=== PATIENT | female | born 1990 | race Caucasian/White ===

== ENCOUNTER 2018-03-03 01:44 | Emergency (ER) | END 2018-03-03 06:14 | disposition home or self-care (01) ==

== ENCOUNTER 2018-03-04 11:09 | Emergency (ER) | END 2018-03-04 14:09 | disposition home or self-care (01) ==

== ENCOUNTER 2018-03-15 13:59 | Emergency (ER) | END 2018-03-15 17:20 | disposition home or self-care (01) ==

== ENCOUNTER 2018-03-21 14:54 | Emergency (ER) | END 2018-03-21 17:49 | disposition home or self-care (01) ==

== ENCOUNTER 2018-10-15 11:18 | Inpatient (IN) | payer OTHER ==
[~2018-10-15] VITALS: Ht 149.9 cm; Wt 58.7 kg
[~2018-10-15 11:18] MED LIST: CEPH-443 PO; ELEC100080 PO; EPINEPHrine 1 MG INJ ONE; METO10TA92 PO; OMEP20CA16 PO; ONDA4TAB14 PO; ONDA8TAB14 PO; RANI150T35 PO
[2018-10-15 12:43] VITALS: Ht 149.9 cm; Wt 58.7 kg
[2018-10-15] MEDS ORDERED: PREN-93 PO (12:43)
[2018-10-15] MEDS ORDERED: LEVO125T7 PO (12:43)
[2018-10-15 12:44] VITALS: BP 98/60; PULSE 72; RESP 18
--- NOTE | 2018-10-15 12:54 | TRIAGE ---
OB Triage Datetime Report Generated by CPN: 10/15/2018 12:54 Datetime: 10/15/2018 12:40 Assessment Type: Triage Maternal Assessment Level of Consciousness: Fully Conscious DTR's/Clonus: DTRs 2+; No Clonus Headache: Denies Blurred Vision: No Respiratory Effort: Unlabored; Regular Rhythm; Equal Expansion Breath Sounds, Left: Clear and Equal Breath Sounds, Right: Clear and Equal Nausea/Vomiting: Denies RUQ Epigastric Pain: Denies Lower Extremities Edema: None Degree: None Upper Extremities Edema: None Degree: None Facial Edema: None Fall Risk Assessment History of Falling: (0) No Secondary Diagnosis: (0) No Ambulatory Aid: (0) Bedrest/Nurse Assist IV Therapy: (0) No Gait: (0) Normal/Bedrest/Immobile Mental Status: (0) Oriented to Own Ability Fall Score: 0 Fall Risk Score Definition: No Risk: No action required Datetime: 10/15/2018 12:37 Time of Arrival: 10/15/2018 11:15 EGA: 38.4 Arrived By: Ambulatory Arrived From: Home Chief Complaint: PT. WAS SENT FOR NST/BPP/EFW FOR THROIDECTOMY Movement: Present Contractions: Denies/Absent Rupture of Membranes: Denies Vaginal Bleeding: None Vaginal Discharge: Denies Recent Sexual Intercouse: Denies Abdominal Trauma: Not Applicable Patient Complaints: None Time Provider Notified: 10/15/2018 12:45 Provider Notified: HADADIAN Initial Plan: NST/BPP/EFW Datetime: 10/15/2018 12:36 Labor Evaluation Monitor Mode: External Heart Rate Monitor Mode: External US
[2018-10-15] MEDS ORDERED: OXYTOCIN 30 UNITS/LR 500 ML IV SCH (13:30)
[2018-10-15] MEDS ORDERED: MISOPROSTOL 200 MCG TAB PR PRN (13:30)
[2018-10-15] MEDS ORDERED: OXYTOCIN 30 UNITS/LR 500 ML IV PRN (13:30)
[2018-10-15] MEDS ORDERED: CEFAZOLIN 2 GM/50 ML (PMX) 50 ML IVPB SCH (13:30)
[2018-10-15] MEDS ORDERED: CARBOPROST 250 MCG INJ IM PRN (13:30)
[2018-10-15] MEDS ORDERED: METHYLERGONOVINE 0.2 MG INJ IM PRN (13:30)
--- NOTE | 2018-10-15 14:43 | HP ---
Date/Time of Note Date/Time of Note DATE: 10/15/18 TIME: 14:33 OB - History Hx of Present Free Text/Dictation 28-year-old 1 with single intrauterine at 38 weeks and 4 days with DARIO of 10/25/2018 [facility] [place] today. She referred for NST and biophysical profile for hypothyroidism and size less than date. She states good movement. She denies nausea, vomiting, shortness of breath, chest pain, headache, visual changes, vaginal bleeding or LOF. Risk factors: - History of thyroidectomy in 2013 for goiter, currently is hypothyroidism and is on levothyroxine - Size less than date, EFW of 5% - Breach presentation Estimated Due Date: Oct 25, 2018 : 1 Care: Good Care Ultrasounds: Normal mid trimester US Obstetrical Complications: Other (Size less than date) Medical Complications: Other (Hypothyroidism s/p thyroidectomy) Past Family/Social History * Past Medical, Surgical, Family and Obstetric Histories reviewed from chart. Blood Type: O+ Rubella: immune RPR/VDRL: Negative GBS Status: Negative HBsAG: Negative OB Admission Exam Vital Signs Vital Signs Vital Signs Date Temp Pulse Resp B/P (MAP) Pulse Ox O2 O2 Flow FiO2 Time Delivery Rate 10/15/18 97.6 72 18 98/60 (73) Room Air 12:44 Physical Exam HEENT: WNL Heart: Rhythm Normal Lungs: Clear Abdomen: WNL Extremities: Normal Station: -3 Membranes: Intact Heart Rate: 140's Accelerations: Accelerations Present Decelerations: No Decelerations Varibility: Moderate Contractions on Admission: >10 Minutes Apart Intensity: Mild OB Assessment/Plan Other plan: 28 years old 1 with single intrauterine at 38 weeks and 4 days with breech presentation, EFW of 5 percentile, hypothyroidism s/p thyroidectomy and oligohydramnios - FHR: No sign of metabolic acidosis- Category I - Continuous EFM, toco - CBC, blood type and screen - Analgesia options with R/B/A discussed in detail with patient - Please see the orders - O+/Rubella: Immune - GBS: negative - Labs, ultrasound and delivery discussed in detail with patient. She ate around 12, will keep her n.p.o. The risk of delivery including but not limited to bleeding, infection, injury to other organs (bowel, bladder, ureter, vessels, nerves), injury to fetus, blood transfusion, blood transfusion related infection, risk of anesthesia, adhesion, needs for future , removal of uterus or any other indicated surgery was discussed with the patient and her family. She expressed understanding. All of her questions were answered. She signed the informed consent. PHYSICIAN'S VERIFICATION OF INFORMED CONSENT The patient was counseled regarding the procedure, its indications, risks, potential complications and alternatives and any questions were answered. Consent was obtained. PLANNED PROCEDURE/TREATMENT: delivery with possible using vacuum/forceps and any other indicated surgery PHYSICIAN'S VERIFICATION OF INFORMED CONSENT FOR BLOOD TRANSFUSION: There is a reasonable possibility that blood transfusion will be necessary as a result of the patient's procedure. I have discussed the following with the patient/patient's legal inventory representative: An explanation of the benefits and risks of the transfusion of blood or blood products and the possible a lternatives. All questions have been answered to the patient's satisfaction. INFORMED CONSENT:The patient has been informed of: The nature of the proposed care, treatment, services, medications, interventions or procedures. Potential benefits, risks or side effects, including potential problems related to recuperation. The likelihood of achieving care treatment and service goals. Reasonable alternatives to the proposed care, treatment and service. The relevant risks, benefits and side effects related to alternatives, including the possible results of not receiving care, treatment and services. When indicated, any limitations on the confidentiality of information learned from or about the patient. If appropriate, the risks, benefits and alternatives of the drugs to be used for sedation/analgesia including moderate sedation. If appropriate, patient has been provided information on the risks, benefits and alternatives to the transfusion of blood and/or blood products. If appropriate, patient has been provided information regarding the [place] Blood Act. BLAIR DOWNS Oct 15, 2018 14:43
[2018-10-15] MEDS: LACTATED RINGER'S 1,000 ML IV SCH ×3 (15:16→23:05)
--- NOTE | 2018-10-15 21:40 | PREAC ---
Date/Time of Note Date/Time of Note DATE: 10/15/18 TIME: 21:40 Anesthesia Eval and Record Evaluation Time Pre-Procedure Interview DATE: 10/15/18 TIME: 21:40 Age 28 Sex female NPO: 8 hrs Preoperative diagnosis term labor, breech position Planned procedure primary Csection Past Medical History Past Medical History: None Surgery & Anesthesia Issues No known issue Meds Anticoagulation: No Beta Alethea within 24 hr: No Reason Beta Alethea not given: Pt. not on B-Alethea Reported Medications Vit No.124/Iron/FA ( Vitamin Tablet) 1 Each Tablet, 1 EACH PO DAILY, TAB 10/15/18 Levothyroxine Sodium* (Levothyroxine Sodium*) 125 Mcg Tablet, 125 MCG PO BEFORE BREAKFAST, #30 TAB 10/15/18 Discontinued Scripts Ranitidine Hcl* (Zantac*) 150 Mg Tablet, 150 MG PO BID PRN for EPIGASTRIC PAIN, #30 TAB Prov:RITCHIE MCKINNON. HAT MENDER 03/21/18 Omeprazole* (Omeprazole*) 20 Mg Capsule.dr, 20 MG PO QAM, #14 Prov:RITCHIE MCKINNON. HAT MENDER 03/21/18 Cephalexin* (Keflex*) 500 Mg Capsule, 500 MG PO QID for 7 Days, CAP Prov:HEAVEN MOSLEY PA-C 03/15/18 Ondansetron (Ondansetron Odt) 8 Mg Tab.rapdis, 8 MG PO Q6H PRN for NAUSEA AND/OR VOMITING, #10 TAB Prov:RITCHIE MCKINNON. SILVA 03/10/18 Electrolyte,Oral (Pedialyte) 1,000 Ml Solution, 100 ML PO Q6 PRN for vomiting, #1000 ML Prov:GUZMAN HU PA-C 03/04/18 Ondansetron (Ondansetron Odt) 4 Mg Tab.rapdis, 4 MG PO Q6H PRN for NAUSEA AND/OR VOMITING, #10 TAB Prov:GUZMAN HU PA-C 03/04/18 Cephalexin* (Keflex*) 500 Mg Capsule, 500 MG PO TID for 7 Days, CAP Prov:DAMIAN GARCIA PA-C 03/03/18 Metoclopramide* (Reglan*) 10 Mg Tablet, 10 MG PO Q6 PRN for NAUSEA AND/OR VOMITING, #10 TAB Prov:DAMIAN GARCIA PA-C 03/03/18 Current Medications Levothyroxine Sodium (Synthroid) 125 mcg BEFORE BREAKFAST PO ; Start 10/16/18 at 07:00 Lactated Ringer's 1,000 ml @ 125 mls/hr Q8H IV Last administered on 10/15/18at 19:33; Admin Dose 125 MLS/HR; Start 10/15/18 at 13:13 Cefazolin Sodium/ Dextrose 50 ml @ 100 mls/hr ONCE IVPB ; Start 10/15/18 at 13:30 Oxytocin/Lactated Ringer's 500 ml @ 125 mls/hr POST IV ; Start 10/15/18 at 13:30 Oxytocin/Lactated Ringer's 500 ml @ 0 mls/hr ONCE PRN IV VAGINAL BLEEDING; S tart 10/15/18 at 13:30 Methylergonovine Maleate (Methergine) 0.2 mg ONCE PRN IM VAGINAL BLEEDING; S tart 10/15/18 at 13:30 Carboprost Tromethamine (Hemabate) 250 mcg ONCE PRN IM VAGINAL BLEEDING; Start 10/15/18 at 13:30 Misoprostol (Cytotec) 1,000 mcg ONCE PRN GA VAGINAL BLEEDING; Start 10/15/18 at 13:30 Famotidine (Pepcid Iv) 20 mg ONCE ONCE IV ; Start 10/15/18 at 22:30; Stop 10/15/18 at 22:31 Ondansetron HCl (Zofran Inj) 4 mg ONCE ONCE IV ; Start 10/15/18 at 22:30; Stop 10/15/18 at 22:31 Metoclopramide HCl (Reglan) 10 mg ONCE ONCE IV ; Start 10/15/18 at 22:30; Stop 10/15/18 at 22:31 Meds reviewed: Yes Allergies Coded Allergies: No Known Allergy (Unverified , 03/21/18) Allergies Reviewed: Yes Labs/Studies Labs Reviewed: Reviewed by anesthesiologist Result Diagram: 10/15/18 1424 Laboratory Tests 10/15/18 14:24 Blood Bank Test 10/15/18 14:24 Antibody Screen NEGATIVE Blood Type O POSITIVE Rh Immune Globulin Candidate NO test: Positive Pre-procedure Exam Last vitals Vital Signs Date Temp Pulse Resp B/P (MAP) Pulse Ox O2 O2 Flow FiO2 Time Delivery Rate 10/15/18 97.6 72 18 98/60 (73) Room Air 12:44 Airway: Adequate mouth opening, Adequate thyromental dist Mallampati: Mallampati III Teeth: Normal Lung: Normal Heart: Normal ASA Physical Status ASA physical status: 2 Emergency: E Planned Anesthetic Neuraxial: Spinal Planned Pain Management Sub-arachniod narcotics, Parenteral pain med, Other neuraxial med Pre-operative Attestations Prior to commencing anesthesia and surgery, the patient was re-evaluated, there was verification of: *The patient's identity *The results of appropriate recent lab work and preoperative vital signs *The above evaluation not changing prior to induction *Anesthetic plan, risk benefits, alternative and complications discussed with patient/family; questions answered; patient/family understands, accepts and wishes to proceed. JOHANNA PARK MD Oct 15, 2018 21:40
[2018-10-15] MEDS ORDERED: morphine SULFATE/PF (10 MG/10 ML) INJ ONE (21:57)
[2018-10-15] MEDS ORDERED: OXYTOCIN 10 UNIT INJ ONE (21:58)
[2018-10-15] MEDS ORDERED: ZOLPIDEM 5 MG TAB PO PRN (22:00)
[2018-10-15] MEDS ORDERED: HYDROmorphONE 1 MG/5 ML IV SYRINGE IV PRN ×3 (22:00)
[2018-10-15] MEDS ORDERED: NALOXONE (0.4 MG/ML) INJ IV PRN ×2 (22:00)
[2018-10-15] MEDS ORDERED: ONDANSETRON 4 MG INJ IV PRN ×2 (22:00)
[2018-10-15] MEDS ORDERED: KETOROLAC 30 MG INJ IV PRN ×2 (22:00)
[2018-10-15] MEDS ORDERED: FENTAnyl 50 MCG/ML VIAL IV PRN ×2 (22:00)
[2018-10-15] MEDS ORDERED: DIPHENHYDRAMINE 50 MG INJ IV PRN ×2 (22:00)
[2018-10-15] MEDS ORDERED: HYDROmorphONE 0.5 MG/0.5 ML SYG IV PRN ×2 (22:00)
[2018-10-15] MEDS ORDERED: FAMOTIDINE 20 MG INJ IV ONE (22:30)
[2018-10-15] MEDS ORDERED: METOCLOPRAMIDE 10 MG INJ IV ONE (22:30)
[2018-10-15] MEDS ORDERED: ONDANSETRON 4 MG INJ IV ONE (22:30)
[2018-10-16] VITALS (7 sets, daily range): BP systolic 102–118; BP diastolic 58–70; PULSE 58–93; RESP 18–19
[2018-10-16] MEDS ORDERED: OXYTOCIN 30 UNITS/LR 500 ML IV SCH (01:27)
[2018-10-16] MEDS: DEXTROSE 5%-LR 1,000 ML IV SCH ×3 (01:27→20:31)
--- NOTE | 2018-10-16 01:27 | OPR ---
Operative Report Planned Procedure Procedure date Oct 16, 2018 Procedure(s) Primary low transverse delivery Performed by see signature line Web Development Intern: KAMALA JOY MD Anesthesiologist: JOHANNA PARK MD Pre-procedure diagnosis 28 years old 1 with single intrauterine at 38 weeks and 4 days with breech presentation, EFW of 5 percentile, hypothyroidism s/p thyroidectomy and oligohydramnios [id number] Anesthesia Type: [id number] spinal Post-Procedure Post-procedure diagnosis 28 years old 1 with single intrauterine at 38 weeks and 4 days with breech presentation, EFW of 5 percentile, hypothyroidism s/p thyroidectomy and oligohydramnios Findings 1. Normal uterus, fallopian tubes and ovaries 2. Viable female in renee breech presentation. 8 at one minute and 9 in 5 minutes. Weight: 6 pounds 13 ounces. Time of delivery: 00:56 3. Placenta with three vessel cord 4. Amniotic fluid - Clear Estimated Blood Loss: 500 - 600 mls Specimen(s) none Grafts/Implant(s) none Complication(s) none Pt Condition post procedure: stable Disposition: PACU Procedure Description INDICATION AND HISTORY: A 28 years old 1 with single intrauterine at 38 weeks and 4 days with breech presentation, EFW of 5 percentile, hypothyroidism s/p thyroidectomy and oligohydramnios. The risk of delivery including but not limited to bleeding, infection, injury to other organs (bowel, bladder, ureter, vessels, nerves), injury to fetus, blood transfusion, blood transfusion related infection, risk of anesthesia, adhesion, needs for future , removal of uterus or any other indicated surgery was discussed with the patient and her family. She expressed understanding. All of her questions were answered. She signed the informed consent. DESCRIPTION OF OPERATION: The patient was taken to the operating room, where she was identified and the procedure was verified. The patient received two gram of Ancef 30 minutes prior to surgery. Spinal anesthesia was placed. The patient placed in the dorsal supine position with a left tilt. The heart rate was 143 bpm. The patient was then prepped and draped in the normal sterile fashion. A Pfannenstiel skin incision was made and carried down to the fascia with knife. The fascia was incised in the midline and the fascial incision was carried laterally with knif. The superior portion of the fascial incision was then grasped with Kenroy clamps and tented up and dissected off the underlying rectus muscle with sharp dissection. The lower portion of the fascial incision was then made in a similar fashion. The rectus muscle was and the peritoneum was entered. The peritoneal incision was then stretched and an Hilario retractor was inserted. Then, an incision was made in the lower uterine segment in a transverse fashion with a knife and extended bluntly. The was delivered atraumatically in renee breech presentation with the above findings. The umbilical cord was clamped and cut. The neonatology re suscitation team was present and the baby was handed to them. A cord blood sample was obtained for further evaluation. The placenta and membrane, which appeared normal were Removed. The uterus was exteriorized and cleared of all clot and debris. The uterus was then closed in a two layer fashion with 0- Monocryl. At the time of closure, hemostasis was noted. The gutters were ir rigated. The peritoneum was reapproximated with 3-0 *Vicryl. The muscle was reapproximated with 3-0 Vicryl. The fascia was approximated with 0-Vicryl in a running fashion. The subcutaneous tissue was re approximated with 3-0 vicryl. The skin was closed with 4-0 Monocryl. All instruments, sponges and needle counts were correct x3. The patient tolerated the procedure well. She transferred to the recovery room in stable condition. BLAIR DOWNS Oct 16, 2018 01:27
[2018-10-16] MEDS ORDERED: MISOPROSTOL 200 MCG TAB PR PRN (01:30)
[2018-10-16] MEDS ORDERED: METHYLERGONOVINE 0.2 MG TAB PO PRN (01:30)
[2018-10-16] MEDS ORDERED: OXYTOCIN 30 UNITS/LR 500 ML IV PRN (01:30)
[2018-10-16] MEDS ORDERED: MAGNESIUM HYDROXIDE 30ML CUP PO PRN (01:30)
[2018-10-16] MEDS ORDERED: METHYLERGONOVINE 0.2 MG INJ IM PRN (01:30)
[2018-10-16] MEDS ORDERED: LANOLIN HPA 1 PKT TOP PRN (01:30)
[2018-10-16] MEDS ORDERED: CARBOPROST 250 MCG INJ IM PRN (01:30)
--- NOTE | 2018-10-16 03:05 | NUR ---
admitted to [facility] via [facility] in stable condition,assessment done as charted,vital signs taken and recorded,oriented to room,call light within reach.
--- NOTE | 2018-10-16 05:50 | NUR ---
EOSS: vital signs stable,lochia small amount,medicated with zofran once this shift for nausea,bonding well with her baby,hourly rounding nad rounding every 30 minutes between [id number] maintained.
[2018-10-16] MEDS: IBUPROFEN 800 MG TAB PO SCH ×3 (06:00→22:11)
[2018-10-16] MEDS: LEVOTHYROXINE 100 MCG TAB PO SCH (06:00)
--- NOTE | 2018-10-16 06:13 | PAC ---
Date/Time of Note Date/Time of Note DATE: 10/16/18 TIME: 06:13 Post-Anesthesia Notes Post-Anesthesia Note Last documented vital signs Vital Signs Date Temp Pulse Resp B/P (MAP) Pulse Ox O2 O2 Flow FiO2 Time Delivery Rate 10/16/18 67 19 105/58 97 Room Air 04:05 (74) 10/16/18 97.9 03:05 Activity: WNL Respiratory function: WNL Cardiovascular function: WNL Mental status: Baseline Pain reasonably controlled: Yes Hydration appropriate: Yes Nausea/Vomiting absent: Yes JOHANNA PARK MD Oct 16, 2018 06:13
[2018-10-16] MEDS ORDERED: LEVOTHYROXINE 125 MCG TAB PO SCH (07:00)
[2018-10-16] MEDS: SENNA/DOCUSATE NA (8.6MG/50MG) TAB PO SCH ×2 (09:19→21:20)
--- NOTE | 2018-10-16 18:13 | NUR ---
EOSS. PT, IS IN STABLE CONDITION . FUNDUS FIRM NORMAL BLEEDING NO COMPLAINED OF PAIN OR ANY PROBLEM UNDER OBSERVATION .
[2018-10-17] MEDS: DEXTROSE 5%-LR 1,000 ML IV SCH ×3 (00:13→17:27)
[2018-10-17] MEDS ORDERED: HYDROCODONE/APAP (5/325) TAB PO PRN ×2 (03:00→11:00)
[2018-10-17 03:45] VITALS: BP 110/62; PULSE 81; RESP 19
--- NOTE | 2018-10-17 05:18 | NUR ---
EOSS: vital signs stable,voiding without difficulty,lochia small amount,bonding well with her baby,pain controlled with motrin and norco,hourly rounding and rounding every 30 minutes between [id number] maintained.
[2018-10-17] MEDS: LEVOTHYROXINE 100 MCG TAB PO SCH (05:34)
[2018-10-17] MEDS: IBUPROFEN 800 MG TAB PO SCH ×3 (05:35→21:43)
[2018-10-17] MEDS: HYDROCODONE/APAP (5/325) TAB PO SCH ×3 (06:00→21:43)
[2018-10-17 07:30] VITALS: BP 101/52; PULSE 74; RESP 18
[2018-10-17] MEDS: SENNA/DOCUSATE NA (8.6MG/50MG) TAB PO SCH ×2 (08:56→21:12)
[2018-10-17] MEDS ORDERED: DIPHTH/TET/ACEL PERTUSS (ADULT) 0.5 ML VIAL IM* ONE (11:00)
[2018-10-17] MEDS ORDERED: HYDROCODONE/APAP (5/325) TAB PO SCH (14:00)
[2018-10-17 16:02] VITALS: BP 105/57; PULSE 77; RESP 18
--- NOTE | 2018-10-17 18:39 | PN ---
Date/Time of Note Date/Time of Note DATE: 10/17/18 TIME: 18:32 OB Subjective Subjective Subjective POD#1 Patient is doing well. She denies nausea, vomiting, shortness of breath, chest pain, headache. She has been ambulating without difficulty, tolerating regular diet. Pain is well controlled on current medications OB Objective Objective Objective Vital Signs Date Temp Pulse Resp B/P (MAP) Pulse Ox O2 O2 Flow FiO2 Time Delivery Rate 10/17/18 98.2 77 18 105/57 Room Air 16:02 (73) 10/16/18 97 23:45 General: AAO X 3, comfortable, NAD, appropriate mood and affect. Heart: RRR +S1, +S2, no murmurs. Lungs: Clear to auscultation (B/L), no rales, rhonchi or wheezing. ABD: +BS. Soft, non-tender. Uterus 2 cm below umbilicus Incision: Clear, dry, intact. No erythema, drainage or induration. Flank: No CVA tenderness (B/L) LE: Mild edema. No clubbing, cyanosis, thigh or calf tenderness (B/L). Homans 'sign is negative OB Assessment/Plan Other plan: 28 years old 1 para 1001 s/p primary delivery for breech presentation. POD#1 - AF, VSS - Baby is doing well, at bed side. She is bonding well - Contraception methods with R/B/A/FR discussed - Continue care - She would like to be discharged home tomorrow - Rx and instruction given - Follow up in one and 6 weeks 2) Hypothyroidism s/p thyroidectomy for goiter: She was on levothyroxine 125 mcg during , decreased 200 mcg daily after delivery. Repeat thyroid function tests in 4 weeks. 3) Anemia: Hemoglobin 8.9. She has no symptom, recommend increase ferrous sulfate 325 mg and continue vitamin BLAIR DOWNS Oct 17, 2018 18:39
--- NOTE | 2018-10-17 18:40 | DS ---
Date/Time of Note Date/Time of Note DATE: 10/17/18 TIME: 18:39 Obstetrical Discharge Record Final Diagnosis Final Diagnosis: Term delivered Other Final Diagnosis 28 years old 1 para 1001 s/p primary delivery for breech presentation. POD#1 she is ambulating and tolerating regular diet. She is voiding without difficulty. The pain is controlled on current medication.. - AF, VSS - Baby is doing well, at bed side. She is bonding well - Contraception methods with R/B/A/FR discussed - Continue care - She would like to be discharged home tomorrow - Rx and instruction given - Follow up in one and 6 weeks 2) Hypothyroidism s/p thyroidectomy for goiter: She was on levothyroxine 125 mcg during , decreased 200 mcg daily after delivery. Repeat thyroid function tests in 4 weeks. 3) Anemia: Hemoglobin 8.9. She has no symptom, recommend increase ferrous sulfate 325 mg and continue vitamin Section Section: Primary Primary Indication Breech presentation Condition on Discharge Physical Assessment Last Vitals: Vital Signs Date Temp Pulse Resp B/P (MAP) Pulse Ox O2 O2 Flow FiO2 Time Delivery Rate 10/17/18 98.2 77 18 105/57 Room Air 16:02 (73) 10/16/18 97 23:45 Voiding: Yes Bowel Movement: Yes Breast: Soft, non-tender Fundus: Firm Calf Tenderness: No Patient Condition: Stable BLAIR DOWNS Oct 17, 2018 18:40
--- NOTE | 2018-10-17 18:45 | NUR ---
EOSS. PT, IS IN STABLE CONDITION . FUNDUS FIRM NORMAL BLEEDING NO COMPLAINED OF PAIN OR ANY PROBLEM UNDER OBSERVATION .
[2018-10-17 20:00] VITALS: BP 99/55; PULSE 75; RESP 17
[2018-10-18] MEDS: DEXTROSE 5%-LR 1,000 ML IV SCH ×3 (01:27→17:27)
[2018-10-18 04:00] VITALS: BP 107/58; PULSE 68; RESP 18
--- NOTE | 2018-10-18 05:09 | NUR ---
EOSS: PATIENT IN STABLE CONDITION. AND FEEDING FORMULA VIA BOTTLE. BONDING WELL WITH INFANT. FUNDUS FIRM WITH SCANT AMOUNT OF LOCHIA. PASSING GAS AND VOIDING WELL. C/S INCISION WITH DERMABOND OPEN TO AIR, DRY AND CLEAN. AMBULATING. AFEBRILE.
[2018-10-18] MEDS: LEVOTHYROXINE 100 MCG TAB PO SCH (06:02)
[2018-10-18] MEDS: HYDROCODONE/APAP (5/325) TAB PO SCH ×2 (06:03→14:00)
[2018-10-18] MEDS: IBUPROFEN 800 MG TAB PO SCH ×2 (06:03→14:41)
[2018-10-18 08:00] VITALS: BP 111/51; PULSE 71; RESP 18
[2018-10-18] MEDS: SENNA/DOCUSATE NA (8.6MG/50MG) TAB PO SCH (09:07)
[2018-10-18 16:00] VITALS: BP 107/70; PULSE 80; RESP 20
--- NOTE | 2018-10-18 16:41 | PD.PPDC ---
ETL DATA ARCHITECT Discharge Instruction Condition [id number] Patient Condition: Bczsm4e Good Activity/Restrictions [id number] Activity: Rhmfw0d Normal Activity [id number] Restrictions: [id number] No Exercising No Lifting No Driving Minimize Walking Minimize Stair-climbing No Sexual Activity Nothing in the Vagina No [place] No Tampons, douche Follow-up Follow-up with Physician: 2, 6, Week/Weeks Return to clinic for Meesq7Ld [employer] Instructions: Wutbs0q Fever greater than 101 Chills Worsening abdominal pain Excessive Vaginal Bleeding More than 2 pads per hour Unable to tolerate diet [id number] OB Instructions: Iqioi9i Breast Tenderness Depression Blurried Vision Headache [id number] Surgical Instructions: Eiiam4r Incisional Drainage Incisional Redness YOGESH DE LA CRUZ MD Oct 18, 2018 16:41
--- NOTE | 2018-10-18 16:54 | QN ---
Documentation Comment 10/18/2018 Denies any complaint. Breast feeding, Passed flatus, Has not have any bowel movement,. tolerated regular diet. Urinated. Pain well controlled with PO pain meds Denies any dizziness, lightheadadness. Denies any SOB or chest pain. PE: GA, A&O, NAD Abdomen : soft, non tender, incision. Clean, dry and intact. no abnormal drainage from the incision Extremities: NO calf tenderness, no click , no edema VS - Last 72 Hours, by Label Date Temp Pulse Resp B/P (MAP) Pulse Ox O2 O2 Flow FiO2 Time Delivery Rate 10/18/18 98.2 80 20 107/70 Room Air 16:00 (82) 10/18/18 97.9 71 18 111/51 Room Air 08:00 (71) 10/18/18 98.1 68 18 107/58 Room Air 04:00 (74) 10/17/18 98.5 75 17 99/55 (70) Room Air 20:00 10/17/18 98.2 77 18 105/57 Room Air 16:02 (73) 10/17/18 98.0 74 18 101/52 Room Air 07:30 (68) 10/17/18 98.0 81 19 110/62 Room Air 03:45 (78) 10/16/18 98.4 90 19 110/69 97 Room Air 23:45 (83) 10/16/18 98.6 93 19 106/63 Room Air 19:45 (77) 10/16/18 98.3 80 18 102/62 Room Air 16:09 (75) 10/16/18 98.1 58 18 110/67 Room Air 12:00 (81) 10/16/18 98.1 80 18 118/70 Room Air 07:30 (86) 10/16/18 67 19 105/58 97 Room Air 04:05 (74) 10/16/18 97.9 69 19 104/59 98 Room Air 03:05 (74) Laboratory Tests Test 10/17/18 06:49 White Blood Count 14.4 10^3/ul Red Blood Count 3.27 10^6/ul Hemoglobin 8.9 g/dl Hematocrit 27.4 % Mean Corpuscular Volume 83.8 fl Mean Corpuscular Hemoglobin 27.2 pg Mean Corpuscular Hemoglobin Concent 32.5 g/dl Red Cell Distribution Width 13.8 % Platelet Count 197 10^3/UL Mean Platelet Volume 9.6 fl Immature Granulocytes % 0.600 % Neutrophils % 83.7 % Lymphocytes % 10.9 % Monocytes % 4.4 % Eosinophils % 0.2 % Basophils % 0.2 % Nucleated Red Blood Cells % 0.0 /100WBC Immature Granulocytes # 0.080 10^3/ul Neutrophils # 12.1 10^3/ul Lymphocytes # 1.6 10^3/ul Monocytes # 0.6 10^3/ul Eosinophils # 0.0 10^3/ul Basophils # 0.0 10^3/ul Nucleated Red Blood Cells # 0.0 10^3/ul Assessment: POD #2. s/p repeat section. Status post thyroidectomy. On Synthroid, restart medication Doing well Desires to go home. Stable to [place] home follolw up at 2 and 6 weeks post op with her primary OB Anemia, Asymptomatic. to take iron BID and colace 100 mg PO BID YOGESH DE LA CRUZ MD Oct 18, 2018 16:53
--- NOTE | 2018-10-18 17:42 | NUR ---
PT D/C HOME WITH THE BABY IN STABLE CONDITION , D/C CARE INSTRUCTION GIVEN AND INSTRUCTED TO FOLLOW UP IN THE CLINIC IN 2 -6 WEEKS, CALL CLINIC FOR FOLLOW UP APPOINTMENT. PT VERBALIZED UNDERSTANDING.
[2018-10-19] MEDS ORDERED: DIPHTH/TET/ACEL PERTUSS (ADULT) 0.5 ML VIAL IM* ONE (09:00)
[2018-10-19] MEDS ORDERED: MEASLES,MUMPS,RUBELLA VACCINE INJ SC* ONE (09:00)
== END 2018-10-18 17:50 | disposition home or self-care (01) | DRG 787 ==
LOC: L-D 11:18 → OBT 11:18 → L-D 12:45 → OBT 12:57 → L-D 10-16 00:32 → PP1 10-16 03:10
PROVIDERS: ADMIT Obstetrics & Gynecology; ATTEND Obstetrics & Gynecology
PROC: 3E033VJ Introduction of Other Hormone into Peripheral Vein, Percutaneous Approach (ICD-10-PCS; 2018-10-15)
PROC: 10D00Z1 Extraction of Products of Conception, Low, Open Approach (ICD-10-PCS; principal; 2018-10-15 22:00)
DX: O99.284 Endocrine, nutritional and metabolic diseases complicating childbirth (principal); O41.03X0 Oligohydramnios, third trimester, not applicable or unspecified; E03.9 Hypothyroidism, unspecified; O32.1XX0 Maternal care for breech presentation, not applicable or unspecified; Z3A.38 38 weeks gestation of pregnancy; Z37.0 Single live birth
CPT/HCPCS: 76815; 76818; 85025; 85610; 85730; 86592; 86850; 86900; 86901; 99464; G0463; J0171; J0690; J1885; J2274; J2405; J2590; J2765; J7120; J7121